=== PATIENT | female | born 1975 | race Caucasian/White ===

== ENCOUNTER 2024-10-28 07:40 | Inpatient (IN) | payer BC, MEDICAID ==
[~2024-10-28] VITALS: Ht 167.6 cm; Wt 99.1 kg
[~2024-10-28 07:40] MED LIST: ALBU8.5H17 IH; CEPH-357 PO; HYDR1TAB PO; IBUP-1984 PO; LAMO100T2 PO; LORA0.5T PO; MOT200T PO; ONDA-243 PO; PROM25TA14 PO; SUMA25TA35 PO
[2024-10-28] MEDS ORDERED: CLINDAMYCIN 600mg IN NS 50ML 50 ML IV ONE (08:10)
[2024-10-28 08:34] LABS: BASOPHILS # (AUTO) 0.2 X10'3 (0-0.2); BASOPHILS % (AUTO) 1.4 % (0-1); EOSINOPHILS # (AUTO) 0.4 X10'3 (0-0.9); EOSINOPHILS % (AUTO) 3.4 % (0-6); HEMATOCRIT 41.5 % (35.0-45.0); HEMOGLOBIN 13.8 g/dl (12.0-16.0); LYMPHOCYTES # (AUTO) 3.7 X10'3 (1.1-4.8); LYMPHOCYTES % (AUTO) 31.1 % (21-51); MEAN CORPUSCULAR HEMOGLOBIN 28.5 PG (27.0-31.0); MEAN CORPUSCULAR HGB CONC 33.2 g/dL (33.0-36.5); MEAN CORPUSCULAR VOLUME 85.9 FL (78-98); MEAN PLATELET VOLUME 7.8 FL (7.4-10.4); MONOCYTES % (AUTO) 8.9 % (2-12); NEUTROPHILS # (AUTO) 6.5 X10'3 (1.8-7.7); NEUTROPHILS % (AUTO) 55.2 % (42-75); PLATELET COUNT 328 X10'3 (140-440); RED BLOOD COUNT 4.83 X10'6 (4.20-5.60); RED CELL DISTRIBUTION WIDTH 13.4 % (11.5-14.5); WHITE BLOOD COUNT 11.8 X10'3 (4.5-11.0)
[2024-10-28 08:45] LABS: ALANINE AMINOTRANSFERASE 30 U/L (12-78); ALBUMIN 3.5 G/DL (3.4-5.0); ALBUMIN/GLOBULIN RATIO 0.9 (1.1-1.5); ALKALINE PHOSPHATASE 94 IU/L (46-116); ANION GAP 9 (8-16); ASPARTATE AMINO TRANSFERASE 17 U/L (10-37); BILIRUBIN,TOTAL 0.2 MG/DL (0.1-1.0); BLOOD UREA NITROGEN 17 MG/DL (7-18); BUN/CREATININE RATIO 18.3 (10.0-20.0); CALCIUM 9.7 MG/DL (8.5-10.1); CHLORIDE 105 MMOL/L (99-107); CREATININE 0.93 MG/DL (0.40-0.90); GLUCOSE 114 MG/DL (70-104); POTASSIUM 3.5 MMOL/L (3.5-5.1); SODIUM 143 MMOL/L (135-145); TOTAL CARBON DIOXIDE 29.1 MMOL/L (24-32); TOTAL PROTEIN 7.6 G/DL (6.4-8.2); eCRCL 68 ML/MIN; eGFR 64 ML/MIN
[2024-10-28] MEDS: morphine 4 MG/ML inj SYRINge IV ONE ×2 (08:58→10:36)
[2024-10-28] MEDS: LIDOcaine 1% W/epiNEPHrine 1:100,000 20ml vial SQ ONE (09:03)
[2024-10-28] MEDS: clindamycin 600mg/D5W 50ml 50 ML IV ONE (09:03)
[2024-10-28] MEDS ORDERED: ALB0.5UD NEB (10:34)
[2024-10-28] MEDS ORDERED: potassium Cl 20 mEq SR tablet PO PRN ×2 (10:40)
[2024-10-28] MEDS ORDERED: morphine 2 MG/ML inj. syringe IV PRN ×2 (10:40)
[2024-10-28] MEDS ORDERED: HYDROcodone/acetaminophen 5mg/325mg tablet PO PRN (10:40)
[2024-10-28] MEDS ORDERED: potassium Cl 40MEQ/1/2NS 520ml 520 ML IV PRN (10:40)
[2024-10-28] MEDS ORDERED: magnesium sulf-water 4G/100mL 100 ML IV PRN (10:40)
[2024-10-28] MEDS ORDERED: ondansetron/PF 4mg/2ml inj IV PRN (10:40)
[2024-10-28] MEDS ORDERED: acetaminophen 325mg tablet PO PRN ×2 (10:40)
[2024-10-28] MEDS ORDERED: magnesium sulf-water 2g/50mL 50 ML IV PRN (10:40)
[2024-10-28] MEDS ORDERED: HYDROcodone/acetaminophen 10/325mg tab PO PRN (10:40)
[2024-10-28] MEDS ORDERED: magnesium Cl slow-release 64mg tablet PO PRN (10:40)
[2024-10-28] MEDS: nicotine 14mg patch - 24hr TD SCH (11:50)
[2024-10-28] MEDS ORDERED: hydrOXYzine 25 MG tablet PO PRN (11:55)
[2024-10-28 12:11] VITALS: PULSE 99; RESP 18; TEMP 98.3; O2SAT 94
[2024-10-28] MEDS: normal saline 1000ml 1,000 ML IV SCH (14:01)
[2024-10-28 17:53] VITALS: RESP 18
[2024-10-28] MEDS: doxycycline inj 100 MG in normal saline 100ml IV soln 100 ML IV SCH (19:44)
[2024-10-28] MEDS: heparin, porcine 5000 units/ml vial SQ SCH (19:49)
[2024-10-28 22:00] VITALS: BP 162/75; PULSE 88; RESP 18; TEMP 98.7; O2SAT 95
[2024-10-29 05:49] LABS: BASOPHILS # (AUTO) 0.1 X10'3 (0-0.2); BASOPHILS % (AUTO) 1.2 % (0-1); EOSINOPHILS # (AUTO) 0.4 X10'3 (0-0.9); EOSINOPHILS % (AUTO) 4.8 % (0-6); HEMATOCRIT 38.2 % (35.0-45.0); HEMOGLOBIN 12.6 g/dl (12.0-16.0); LYMPHOCYTES # (AUTO) 3.1 X10'3 (1.1-4.8); LYMPHOCYTES % (AUTO) 38.1 % (21-51); MEAN CORPUSCULAR HEMOGLOBIN 28.6 PG (27.0-31.0); MEAN CORPUSCULAR VOLUME 86.7 FL (78-98); MEAN PLATELET VOLUME 8.3 FL (7.4-10.4); MONOCYTES # (AUTO) 0.6 X10'3 (0-0.9); MONOCYTES % (AUTO) 7.4 % (2-12); NEUTROPHILS # (AUTO) 3.9 X10'3 (1.8-7.7); NEUTROPHILS % (AUTO) 48.5 % (42-75); PLATELET COUNT 258 X10'3 (140-440); RED CELL DISTRIBUTION WIDTH 13.8 % (11.5-14.5)
[2024-10-29 06:00] VITALS: BP 151/58; PULSE 84; RESP 16; TEMP 98; O2SAT 94
[2024-10-29 06:00] LABS: ALBUMIN 2.7 G/DL (3.4-5.0); ANION GAP 9 (8-16); BLOOD UREA NITROGEN 17 MG/DL (7-18); BUN/CREATININE RATIO 25.8 (10.0-20.0); CALCIUM 8.3 MG/DL (8.5-10.1); CHLORIDE 109 MMOL/L (99-107); CREATININE 0.66 MG/DL (0.40-0.90); GLUCOSE 93 MG/DL (70-104); POTASSIUM 3.9 MMOL/L (3.5-5.1); SODIUM 143 MMOL/L (135-145); TOTAL CARBON DIOXIDE 24.7 MMOL/L (24-32); eCRCL 95 ML/MIN; eGFR > 90 ML/MIN
[2024-10-29 08:30] VITALS: RESP 18; O2SAT 97
[2024-10-29 10:00] VITALS: BP 156/76; PULSE 89; RESP 18; TEMP 98.6; O2SAT 98
[2024-10-29] MEDS ORDERED: LACT1CAP26 PO (11:06)
[2024-10-29] MEDS ORDERED: DOXY-243 PO (11:06)
[2024-10-29 11:54] VITALS: BP 145/76; PULSE 88; RESP 18; TEMP 98.1; O2SAT 96
== END 2024-10-29 12:15 | disposition home or self-care (01) | DRG 603 ==
LOC: ER 07:41 → ED HOLD 10:44 → ORTHO 4S 11:05
PROVIDERS: ADMIT Internal Medicine; ATTEND Internal Medicine
PROC: 0Y910ZZ Drainage of Left Buttock, Open Approach (ICD-10-PCS; principal; 2024-10-28)
DX: L02.31 Cutaneous abscess of buttock (principal); J45.909 Unspecified asthma, uncomplicated; F31.9 Bipolar disorder, unspecified; F41.9 Anxiety disorder, unspecified; Z56.0 Unemployment, unspecified; Z87.891 Personal history of nicotine dependence; Z88.0 Allergy status to penicillin
CPT/HCPCS: 10060; 36415; 80048; 80053; 83605; 85025; 87040; 87070; 87081; 96361; 96365; 96367; 96372; 96375; 96376; 97161; 97530; 97535; 99285; A6266; A6402; A6449; G0378; J1644; J2270; J3490; J7030